=== PATIENT | female | born 1955 | race Caucasian/White ===

== ENCOUNTER 2022-12-17 09:40 | Outpatient (CLI) | payer MEDICARE, SELFPAY | END 2022-12-17 09:41 | disposition home or self-care (01) | PROVIDERS: PCP Emergency Medicine; Visit Provider Family Medicine | DX: Z00.00 Encounter for general adult medical examination without abnormal findings (principal); R10.9 Unspecified abdominal pain; I10 Essential (primary) hypertension; R79.89 Other specified abnormal findings of blood chemistry; Z13.6 Encounter for screening for cardiovascular disorders | CPT/HCPCS: 80053; 80061; 84439; 84443 ==

== ENCOUNTER 2023-01-01 13:38 | Outpatient (CLI) | payer MEDICARE, SELFPAY | END 2023-01-01 13:39 | disposition home or self-care (01) | PROVIDERS: PCP Emergency Medicine; Visit Provider Emergency Medicine | DX: R79.89 Other specified abnormal findings of blood chemistry (principal); E78.5 Hyperlipidemia, unspecified | CPT/HCPCS: 84445 ==

== ENCOUNTER 2023-01-08 12:38 | Outpatient (CLI) | payer MEDICARE, SELFPAY ==
--- NOTE | 2023-01-08 13:00 | CRLHL7_ITS ---
For Patients: As a result of the Century Cures Act, medical imaging exams and procedure reports are released immediately into your electronic medical record. You may view this report before your referring provider. If you have questions, please contact your health care provider. Indication: Abdominal pain Technique: Noncontrast CT abdomen and pelvis Comparison: No comparison Findings: Heart size is normal. There is no pericardial effusion. Coronary artery calcification. Lung bases are. Clear. Fatty liver. Spleen pancreas adrenal glands are unremarkable cholecystectomy. No abdominal aortic aneurysm. Low-density lesion right kidney probably reflects a cyst but incompletely assessed. Nonobstructing left renal calculus. There is no hydronephrosis. Normal appendix. Urinary bladder appears unremarkable. Diverticulosis. No obstruction no diverticulitis is seen. Calcifications of the pelvis of unclear etiology could be related calcified nodes. No suspicious bony lesions seen. Impression: 1. No acute findings in the abdomen or pelvis. 2. Fatty liver. Diverticulosis. Please note that all CT scans at this facility use dose modulation, iterative reconstruction, and/or weight-based dosing when appropriate to reduce radiation dose to as low as reasonably achievable. Dictated by Skylar Whatley MD @ 01/08/2023 2:26:23 PM (Electronically Signed)
== END 2023-01-08 12:39 | disposition home or self-care (01) ==
PROVIDERS: PCP Emergency Medicine; Visit Provider Family Medicine
DX: R10.9 Unspecified abdominal pain (principal); K76.0 Fatty (change of) liver, not elsewhere classified; K57.30 Diverticulosis of large intestine without perforation or abscess without bleeding
CPT/HCPCS: 74176

== ENCOUNTER 2023-12-03 15:19 | Outpatient (CLI) | payer MEDICARE, SELFPAY | END 2023-12-03 15:20 | disposition home or self-care (01) | LOC: NFLDREF 12-04 06:37 | PROVIDERS: PCP Emergency Medicine; Referring Provider Emergency Medicine; Visit Provider Physician Assistant | DX: N30.90 Cystitis, unspecified without hematuria (principal) | CPT/HCPCS: 87086; 87186 ==

== ENCOUNTER 2024-05-13 09:33 | Outpatient (CLI) | payer MEDICARE, SELFPAY | END 2024-05-13 09:34 | disposition home or self-care (01) | PROVIDERS: PCP Emergency Medicine; Visit Provider Emergency Medicine | DX: Z01.818 Encounter for other preprocedural examination (principal) | CPT/HCPCS: 80048 ==

== ENCOUNTER 2024-07-09 17:24 | Outpatient (CLI) | payer MEDICARE, SELFPAY | END 2024-07-09 17:25 | disposition home or self-care (01) | LOC: NFLDREF 07-12 18:46 | PROVIDERS: PCP Emergency Medicine; Referring Provider Emergency Medicine; Visit Provider Physician Assistant | DX: N39.0 Urinary tract infection, site not specified (principal); R31.9 Hematuria, unspecified | CPT/HCPCS: 87086 ==

== ENCOUNTER 2025-07-19 16:24 | Outpatient (CLI) | payer MEDICARE, SELFPAY | END 2025-07-19 16:25 | disposition home or self-care (01) | LOC: NFLDREF 08-01 04:26 | PROVIDERS: Referring Provider Emergency Medicine | DX: N39.0 Urinary tract infection, site not specified (principal); R31.9 Hematuria, unspecified | CPT/HCPCS: 87086 ==